=== PATIENT | male | born 1975 | race Caucasian/White ===

== ENCOUNTER 2021-05-20 13:53 | Emergency (ER) | payer MEDICAID, SELFPAY ==
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
[2021-05-20 14:04] VITALS: BP 137/102; PULSE 101; RESP 18; TEMP 36.6; O2SAT 99; BMI 35.2
--- NOTE | 2021-05-20 14:24 | XRR_ITS ---
PROCEDURE INFORMATION: Exam: XR Left Elbow Exam date and time: 05/20/2021 1:36 PM Age: 46 years old Clinical indication: Injury or trauma; Fall; Blunt trauma (contusions or hematomas); Elbow; Left; Additional info: Fall, pain TECHNIQUE: Imaging protocol: XR Left elbow. Views: 1 or 2 views. COMPARISON: No relevant prior studies available. FINDINGS: Bones/joints: Osseous structures are intact. Negative for fracture. Moderate DJD of the ulnohumeral articulation. Soft tissues: Normal. XR/XR elbow LT 2V [id number] IMPRESSION: No acute findings.
--- NOTE | 2021-05-20 14:24 | XRR_ITS ---
PROCEDURE INFORMATION: Exam: XR Left Humerus Exam date and time: 05/20/2021 1:36 PM Age: 46 years old Clinical indication: Injury or trauma; Fall; Blunt trauma (contusions or hematomas); Arm, upper; Left; Additional info: Fall, pain TECHNIQUE: Imaging protocol: XR Left humerus. Views: 2 or more views. COMPARISON: No relevant prior studies available. FINDINGS: Bones/joints: Humerus is intact. Negative for fracture. Soft tissues: Normal. XR/[place] [id number] IMPRESSION: No acute findings.
--- NOTE | 2021-05-20 14:24 | CT_ITS ---
WS: [id number] CT CERVICAL TRAUMA TECHNIQUE: Noncontrast CT of the cervical spine with coronal and sagittal reformatted images. CLINICAL INFORMATION: fall, neck pain COMPARISON: None. DLP: 828.[address] scans at [facility] use at least one of these dose optimization techniques: automated e xposure control; mA and/or kV adjustment per patient size (includes targeted exams where dose is matc hed to clinical indication); or iterative reconstruction. FINDINGS: Straightening of the normal cervical lordosis. Mild spondylitic changes. Anterior hypertrophic change s C4-C5 and C5-C6. Normal craniocervical junction. Normal C1-C2 articulation. Dens is normal in appea negro. Normal occipital condyles. No high-grade spinal canal narrowing. Normal C1 ring. No evidence o f acute fracture or dislocation. Normal prevertebral soft tissues. Mastoids air cells are well aerated. CT/CT cervical spin wo con* [id number] IMPRESSION: No evidence of acute fracture or dislocation.
--- NOTE | 2021-05-20 14:24 | CT_ITS ---
WS: [id number] CT CHEST, ABDOMEN, AND PELVIS TECHNIQUE: Contrast-enhanced CT of the chest, abdomen, and pelvis with coronal and sagittal reformatt ed images. CLINICAL INFORMATION: fall, upper l back pain, bilateral flank contusions COMPARISON: None. DLP: 2440.[address] scans at [facility] use at least one of these dose optimization techniques: automated e xposure control; mA and/or kV adjustment per patient size (includes targeted exams where dose is matc hed to clinical indication); or iterative reconstruction. CT CHEST: Both lungs are well aerated. No acute pulmonary infiltrates. A few calcified granulomas. No focal pne umonia or pleural fluid. Chronic RIGHT rib fractures with callus formation. Normal caliber thoracic a gallo. No evidence of mediastinal hematoma or acute aortic injury. No axillary lymphadenopathy. CT ABDOMEN AND PELVIS: Normal liver. Normal gallbladder. Normal portal vein and splenic vein. Mild fatty atrophy of the panc reas. Normal spleen. Small esophageal hiatal hernia. Prostate calcification. Sigmoid diverticulosis. No evidence of acute diverticulitis. Normal appendix in the RIGHT lower quadrant. Tiny fat-containing abdominal hernia. Adrenal glands are normal. Normal renal parenchymal enhancement. No hydronephrosis. Tiny RIGHT renal cyst. Mild disc space narrowing L4 -L5 and L5-S1. Mild lumbar curve convex RIGHT. CT/CT chest abd pel w con* IMPRESSION: 1. Lungs are well aerated. No pneumothorax. 2. No acute traumatic findings in the abdomen or pelvis. 3. No evidence of solid organ injury or laceration. No free fluid in the abdom en or pelvis. 4. No other acute findings.
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
--- NOTE | 2021-05-20 14:40 | ECG_ITS ---
[facility] Test Date: 2021-05-20 Pat Name: Ugo Zambrano Department: Room: Gender: Male [employer]le [employer] Pumper: : 1975 Requested By: Robert Pena Order Number: [id number] Douglas MD: Mario Brewer M.D. Measurements Intervals [place] Rate: 87 P: RI: QRS: 51 QRSD: 97 T: 63 QT: 383 QTc: 462 Interpretive Statements Possible ATRIAL FIBRILLATION ABNORMAL RHYTHM ECG No previous ECG available for comparison Heavy baseline artifact Defective EKG Need to repeat Electronically Signed On 05-20-2021 20:38:28 CDT by Mario Brewer M.D. [id number]
[2021-05-20] MEDS: iohexol 300 mg/mL 100 mL Btl IV (15:10)
[2021-05-20] MEDS: tetanus-dipt-pertussis 0.5 mL SDV IM (15:24)
[2021-05-20 16:43] VITALS: BP 117/86; PULSE 84; O2SAT 99
== END 2021-05-20 16:45 ==
PROVIDERS: Emergency Provider Emergency Medicine; PCP Family Medicine
DX: S09.90XA Unspecified injury of head, initial encounter (principal); T14.8XXA Other injury of unspecified body region, initial encounter; Y35.833A Legal intervention involving a conducted energy device, suspect injured, initial encounter; Z23 Encounter for immunization
CPT/HCPCS: 70450; 71260; 72125; 73060; 73070; 74177; 90471; 90715; 93005; 99283; Q9967